=== PATIENT | female | born 1975 | race Caucasian/White ===

== ENCOUNTER 2016-08-01 21:45 | Emergency (ER) | payer OTHER ==
[2016-08-02] MEDS ORDERED: PREDNISONE 10 MG TABLET ONE (00:47)
[2016-08-02] MEDS ORDERED: DIPHENHYDRAMINE HCL 50 MG CAPSULE ONE (01:01)
== END 2016-08-02 01:25 | disposition home or self-care (01) ==
LOC: ED 21:45
DX: L50.9 Urticaria, unspecified (principal)